=== PATIENT | female | born 1980 | race African-American/Black ===

== ENCOUNTER 2022-01-02 20:18 | Observation (INO) ==
[2022-01-02] MEDS ORDERED: ONDANSETRON ODT 4 MG TABLET PO STA (20:46)
[2022-01-02 21:34] LABS: Basophils % 0.3 % (0.0-0.8); Eosinophils # 0.1 10*3/uL (0.0-0.87); Eosinophils % 1.2 % (0.00-10.9); Hematocrit 37.2 VOL% (35.7-47.0); Hemoglobin 11.4 GM/DL (12.0-16.0); Immature Granulocytes % 0.5 %; Immature Granulocytes Absolute 0.03 #; Lymphocytes # 1.1 10*3/uL (1.4-4.0); Lymphocytes % 17.3 % (21.3-54.2); Mean Corpuscular HGB Conc 30.6 GM/DL (32-36); Mean Corpuscular Volume 69.5 FL (87-102); Mean Platelet Volume 10.1 FL (9.6-12.0); Monocytes % 4.1 % (1.7-12.7); Neutrophils % 76.6 % (38.7-73.9); Platelet Count 351 T/CUMM (130-400); Red Blood Count 5.35 MC/CUMM (3.8-5.5); Red Cell Distribution Width 16.1 % (9.3-17.3); White Blood Count 6.6 T/CUMM (4-12)
[2022-01-02 21:45] LABS: PT Patient Result 11.2 SECS (10.5-12.0); Partial Thromboplastin Time 28.3 SECS (23.8-32.1)
[2022-01-02 21:55] LABS: Alanine Aminotransferase 16 U/L (13-56); Albumin 3.3 G/DL (3.4-5.0); Alkaline Phosphatase 84 U/L (45-117); Aspartate Amino Transferase 12 U/L (0-37); Bilirubin,Total < 0.39 MG/DL (0.20-1.00); Blood Urea Nitrogen 9 MG/DL (7-18); Calcium 8.5 MG/DL (8.5-10.1); Carbon Dioxide 26 MMOL/L (21-32); Estimated Glom Filtration Rate 134 ML/MIN; Glucose 88 MG/DL (74-106); Osmolality,Calculated 276.4 MOS/KG (273-304); Potassium 4.1 MMOL/L (3.5-5.1); Sodium 140 MMOL/L (136-145)
[2022-01-03 00:07] LABS: Bacteria,Urine Occasional /HPF (Few); Bilirubin,Urine Negative (Negative); Blood, Urine Trace mg/dL (Negative); Glucose,Urine (UA) Negative (Negative); Ketones,Urine 15 mg/dL (Negative); Mucus,Urine Occasional /LPF (Occasional); Nitrite,Urine Negative (Negative); Protein,Urine Negative (Negative); RBC,Urine 2 /HPF (0-4); Squamous Epithelial Cell,Urine Occasional /HPF (0-10); Urine Appearance Clear (Clear); Urine Color Yellow (Yellow); Urine Specific Gravity 1.015 (1.001-1.035)
[2022-01-03] MEDS ORDERED: GLUCAGON 1 MG VIAL IM PRN (00:44)
[2022-01-03] MEDS ORDERED: DEXTROSE 10% 250 ML BAG IV PRN (00:44)
[2022-01-03] MEDS ORDERED: ACETAMINOPHEN 325 MG TABLET PO PRN (00:44)
[2022-01-03] MEDS ORDERED: ONDANSETRON 4 MG/2 ML VIAL IV PRN (00:44)
[2022-01-03] MEDS: LACTATED RINGERS 1,000 ML IV SCH ×2 (01:21→15:51)
[2022-01-03 03:47] LABS: Basophils % 0.3 % (0.0-0.8); Eosinophils # 0.1 10*3/uL (0.0-0.87); Eosinophils % 0.7 % (0.00-10.9); Hematocrit 36.5 VOL% (35.7-47.0); Hemoglobin 11.1 GM/DL (12.0-16.0); Immature Granulocytes % 0.4 %; Immature Granulocytes Absolute 0.03 #; Lymphocytes # 0.8 10*3/uL (1.4-4.0); Lymphocytes % 10.7 % (21.3-54.2); Mean Corpuscular HGB Conc 30.4 GM/DL (32-36); Mean Corpuscular Volume 68.9 FL (87-102); Mean Platelet Volume 9.8 FL (9.6-12.0); Monocytes % 4.2 % (1.7-12.7); Neutrophils % 83.7 % (38.7-73.9); Platelet Count 346 T/CUMM (130-400); Red Cell Distribution Width 15.9 % (9.3-17.3); White Blood Count 7.1 T/CUMM (4-12)
[2022-01-03 04:33] LABS: Calcium 8.7 MG/DL (8.5-10.1); Osmolality,Calculated 271.8 MOS/KG (273-304); Risk Ratio 3.54; Thyroid Stimulating Hormone 0.564 uIU/ml (0.358-3.74)
[2022-01-03] MEDS ORDERED: ALUM/MAG/SIMETH/LIDO VISC 1:1 30 ML BOTTLE PO STA (10:24)
[2022-01-03] MEDS: ASPIRIN EC 81 MG TABLET PO SCH (10:30)
[2022-01-03] MEDS: ENOXAPARIN 40 MG/0.4 ML SYRINGE SUBCUT SCH (10:30)
[2022-01-03] MEDS: PANTOPRAZOLE 40 MG TABLET PO SCH (10:30)
[2022-01-03 11:46] LABS: Barbiturates Screen,Urine Negative (Negative); Benzodiazepines Screen,Urine Negative (Negative); Cannabinoid Screen,Urine Negative (Negative); Opiate Screen,Urine Negative (Negative); Phencyclidine Screen,Urine Negative (Negative)
[2022-01-04] MEDS: LACTATED RINGERS 1,000 ML IV SCH ×3 (00:06→17:03)
[2022-01-04] MEDS: PANTOPRAZOLE 40 MG TABLET PO SCH (08:29)
[2022-01-04] MEDS: ASPIRIN EC 81 MG TABLET PO SCH (08:30)
[2022-01-04] MEDS: ENOXAPARIN 40 MG/0.4 ML SYRINGE SUBCUT SCH (08:30)
[2022-01-04 12:21] LABS: Basophils % 0.4 % (0.0-0.8); Eosinophils # 0.2 10*3/uL (0.0-0.87); Eosinophils % 2.7 % (0.00-10.9); Hematocrit 36.9 VOL% (35.7-47.0); Hemoglobin 11.2 GM/DL (12.0-16.0); Immature Granulocytes % 0.5 %; Immature Granulocytes Absolute 0.03 #; Lymphocytes # 1.8 10*3/uL (1.4-4.0); Lymphocytes % 32.6 % (21.3-54.2); Mean Corpuscular HGB Conc 30.4 GM/DL (32-36); Mean Platelet Volume 11.1 FL (9.6-12.0); Neutrophils % 56.8 % (38.7-73.9); Platelet Count 328 T/CUMM (130-400); Red Blood Count 5.27 MC/CUMM (3.8-5.5); Red Cell Distribution Width 16.6 % (9.3-17.3); White Blood Count 5.6 T/CUMM (4-12)
[2022-01-04 12:48] LABS: Albumin 2.7 G/DL (3.4-5.0); Bilirubin,Total 0.9 MG/DL (0.20-1.00); Calcium 8.3 MG/DL (8.5-10.1); Osmolality,Calculated 275.4 MOS/KG (273-304); Potassium 3.9 MMOL/L (3.5-5.1); Total Protein 7.1 G/DL (6.4-8.2)
[2022-01-05] MEDS: LACTATED RINGERS 1,000 ML IV SCH (03:38)
[2022-01-05 06:04] LABS: Basophils # 0.1 10*3/uL (0.0-0.2); Basophils % 0.8 % (0.0-0.8); Eosinophils # 0.2 10*3/uL (0.0-0.87); Eosinophils % 3.7 % (0.00-10.9); Hematocrit 35.7 VOL% (35.7-47.0); Hemoglobin 10.8 GM/DL (12.0-16.0); Immature Granulocytes % 0.8 %; Immature Granulocytes Absolute 0.05 #; Lymphocytes # 2.2 10*3/uL (1.4-4.0); Lymphocytes % 34.1 % (21.3-54.2); Mean Corpuscular HGB Conc 30.3 GM/DL (32-36); Mean Corpuscular Volume 69.1 FL (87-102); Monocytes % 7.9 % (1.7-12.7); Neutrophils % 52.7 % (38.7-73.9); Platelet Count 228 T/CUMM (130-400); Red Blood Count 5.17 MC/CUMM (3.8-5.5); Red Cell Distribution Width 16.4 % (9.3-17.3); White Blood Count 6.6 T/CUMM (4-12)
[2022-01-05 06:05] LABS: Calcium 8.6 MG/DL (8.5-10.1); Osmolality,Calculated 275.4 MOS/KG (273-304); Potassium 4.1 MMOL/L (3.5-5.1)
[2022-01-05 06:31] LABS: Eosinophils 7 % (0-10); Hypochromia Slight; Lymphocytes 32 % (20-55); Microcytosis Slight; Platelet Estimate Adequate; Segmented Neutrophils 52 % (50-85); Total Cells Counted 100
[2022-01-05] MEDS: ASPIRIN EC 81 MG TABLET PO SCH (08:07)
[2022-01-05] MEDS: ENOXAPARIN 40 MG/0.4 ML SYRINGE SUBCUT SCH (08:07)
[2022-01-05] MEDS: PANTOPRAZOLE 40 MG TABLET PO SCH (08:07)
[2022-01-05 11:24] VITALS: BP 96/59
== END 2022-01-05 13:20 | disposition home or self-care (01) ==
LOC: N.EDINP 20:18 → N.ED 20:18 → SUATTDRO 01-03 00:44 → N.3E 01-03 14:00
PROVIDERS: ADMIT Internal Medicine; ATTEND Emergency Medicine